=== PATIENT | female | born 1975 | race Caucasian/White ===

== ENCOUNTER → 2017-06-28 | Outpatient (CLI) | payer BC | END | disposition home or self-care (01) | LOC: C.PAPS 09:35 | PROVIDERS: ATTEND Obstetrics & Gynecology | DX: Z01.419 Encounter for gynecological examination (general) (routine) without abnormal findings (principal) ==

== ENCOUNTER → 2017-10-26 | Outpatient (CLI) | payer BC, OTHER ==
[~2017-10-26] MED LIST: GADAVIST IV PRN
--- NOTE | 2017-10-26 08:05 | DIAGNOSTIC IMAGING REPORT ---
MRI CERVICAL SPINE COMBO CLINICAL HISTORY: CERVICAL SPINE PAIN TINGLING IN THE HANDS AND LEGS. HISTORY OF TRAUMA IN AUGUST TECHNIQUE: Sagittal and axial T1, T2 and STIR images were obtained. Images were acquired before and after the demonstration 6.5 cc of intravenous Gadavist. COMPARISON STUDY: Intraoperative study performed September 2014 There are no suspicious areas of marrow replacement. No intrinsic cervical cord lesions are visualized. There is moderate artifact at the C5-6 level secondary to metallic disc replacement. C2-3: There is no evidence of disc bulge or focal herniation. There is no spinal or foraminal stenosis. C3-4: There is no evidence of disc bulge or focal herniation. There is no spinal or foraminal stenosis. C4-5: There are no disc bulges or focal herniations. There is no spinal or foraminal stenosis. C5-6 :Evaluation of this level is significantly limited secondary to artifact from a metallic disc replacement. No definite recurrent herniation is visualized. There is no definite spinal or foraminal stenosis. C6-7: There is a tiny right paracentral disc protrusion. There is no significant spinal or foraminal stenosis. C7-T1: There is a minimal disc bulge asymmetric to the left. There is no significant spinal or foraminal stenosis. Postcontrast images reveal no pathologically enhancing lesions IMPRESSION: 1. No cord lesions identified 2. Postsurgical changes the C5-6 level 3. Tiny right paracentral disc protrusion at the C6-7 level 4. Minimal asymmetric disc bulge at the C7-T1 level 5. No evidence of significant spinal or foraminal stenosis Electronically signed by: Alber Godfrey M.D. 10/26/2017 8:04 AM Dictated Date/Time: 10/26/2017 7:57 AM
== END | disposition home or self-care (01) ==
LOC: C.MRIBC 06:57
PROVIDERS: ATTEND Orthopaedic Surgery Orthopaedic Surgery of the Spine
DX: M54.2 Cervicalgia (principal)